=== PATIENT | female | born 1955 | race Caucasian/White ===

== ENCOUNTER 2020-10-01 09:54 | Day surgery (SDC) | payer MEDICARE, SELFPAY ==
[2020-09-27 10:18] VITALS: BMI 64.4
--- NOTE | 2020-09-30 10:27 | HO.ANESPROP2 ---
Documented by User: Hanna Burns 09/30/20 11:08 HPI - Anesthesia Eval Consult details Narrative: 65yo F for Colonoscopy PMFSH Past Medical History Medical History Arthritis Elevated cholesterol Hx of osteopenia Hx of pneumothorax Surgical History Surgical History Hx of chest tube placement Hx of laparoscopy Social History Social History Smoking Status: Unknown if ever smoked Use of substances other than those prescribed or required for medical reasons: No Advance Directives Information Provided: No Meds Allergies Allergy/AdvReac Type Severity Reaction Status Date / Time Penicillins Allergy Unknown UNKNOWN Unverified 08/08/20 17:27 sulfamethoxazole Allergy Unknown Unknown Verified 09/27/20 10:22 [From Bactrim] trimethoprim [From Bactrim] Allergy Unknown Unknown Verified 09/27/20 10:22 allergy medications Allergy Unknown UNKNOWN Uncoded 08/08/20 17:27 From Dilantin Allergy Unknown UNKNOWN Uncoded 08/08/20 17:27 From Lipitor Allergy Unknown UNKNOWN Uncoded 08/08/20 17:27 Shellfish Allergy Unknown UNKNOWN Uncoded 08/08/20 17:27 Home Medications Medication Instructions Recorded Confirmed Type biotin 09/27/20 History glucosamines, HCl, sulf,acetyl 1 tab PO DAILY 09/27/20 09/27/20 History [Glucosamine Complex] ibuprofen 09/27/20 09/27/20 History lovastatin 1 tab PO DAILY 09/27/20 09/27/20 History multivitamin 1 tab PO DAILY 09/27/20 09/27/20 History vitamin A-vitamin C-vit E-min tab 09/27/20 History [Ocuvite] Exam Exam Date and Time: September 30, 2020 1027 Height,Weight and Vital Signs: Height 5 ft 6 in Weight 181 kg Pertinent Lab Results Pertinent Lab Results: Laboratory Tests 05/15/20 05/15/20 11:29 11:29 WBC 5.5 Hgb 13.6 Hct 40.0 Plt Count 280 Sodium 140 Potassium 3.9 Chloride 105 BUN 14 Creatinine 0.79 Assessment and Plan Assessment Anesthesia Assessment: Chart Reviewed Documented by User: Taisha Callahan 10/01/20 11:26 PMFSH Past Medical History Medical History Arthritis Elevated cholesterol Hx of osteopenia Hx of pneumothorax Surgical History Surgical History Hx of chest tube placement Hx of laparoscopy Social History Social History Smoking Status: Unknown if ever smoked Use of substances other than those prescribed or required for medical reasons: No Advance Directives Information Provided: No Meds Allergies Allergy/AdvReac Type Severity Reaction Status Date / Time Penicillins Allergy Unknown UNKNOWN Unverified 08/08/20 17:27 sulfamethoxazole Allergy Unknown Unknown Verified 09/27/20 10:22 [From Bactrim] trimethoprim [From Bactrim] Allergy Unknown Unknown Verified 09/27/20 10:22 allergy medications Allergy Unknown UNKNOWN Uncoded 08/08/20 17:27 From Dilantin Allergy Unknown UNKNOWN Uncoded 08/08/20 17:27 From Lipitor Allergy Unknown UNKNOWN Uncoded 08/08/20 17:27 Shellfish Allergy Unknown UNKNOWN Uncoded 08/08/20 17:27 Home Medications Medication Instructions Recorded Confirmed Type biotin 09/27/20 History glucosamines, HCl, sulf,acetyl 1 tab PO DAILY 09/27/20 09/27/20 History [Glucosamine Complex] ibuprofen 09/27/20 09/27/20 History lovastatin 1 tab PO DAILY 09/27/20 09/27/20 History multivitamin 1 tab PO DAILY 09/27/20 09/27/20 History vitamin A-vitamin C-vit E-min tab 09/27/20 History [Ocuvite] Exam Airway Mallampati Class: I TM Dist: >3cm Neck ROM: Full Loose/Missing/Broken Teeth: No Heart: Arrr Lungs: CTA Assessment and Plan Assessment Anesthesia Assessment: Anesthesia Plan Discussed and Chart Reviewed Final Anesthetic Review NPO: Yes ASA Class: II Final Preanesthetic Review: Meds/Allgs Chart Reviewed, Consent Obtained/Reviewed and Anes Risks/Benef Reviewed Patient Risk: Low Procedure Risk: Low Anesthetic Plan Anesthetic Plan: MAC: Disposition: Standard PACU
[2020-10-01 10:23] VITALS: BMI 28.0
[2020-10-01 10:32] VITALS: BP 127/64; PULSE 74; RESP 18; TEMP 36.6; O2SAT 97
--- NOTE | 2020-10-01 10:41 | MHC.SHP ---
Pre-Procedural Eval Section A The patient is an INPATIENT: No Changes since office visit: No Cold of Flu in the past 2 weeks, No New Medical Problems, No Changes in Medication and No Patient answered all questions The History & Physical has been completed within 30 days and I have reviewed it.: Yes Section B Chief Complaint: Screening Allergies: Allergies Allergy/AdvReac Type Severity Reaction Status Date / Time Penicillins Allergy Unknown UNKNOWN Unverified 08/08/20 17:27 sulfamethoxazole Allergy Unknown Unknown Verified 09/27/20 10:22 [From Bactrim] trimethoprim [From Bactrim] Allergy Unknown Unknown Verified 09/27/20 10:22 allergy medications Allergy Unknown UNKNOWN Uncoded 08/08/20 17:27 From Dilantin Allergy Unknown UNKNOWN Uncoded 08/08/20 17:27 From Lipitor Allergy Unknown UNKNOWN Uncoded 08/08/20 17:27 Shellfish Allergy Unknown UNKNOWN Uncoded 08/08/20 17:27 Plan Patient has been examined and remains a candidate for the planned procedure
[2020-10-01] MEDS: Lactated Ringers 1,000 ML 100 ML IVCONT (10:49)
--- NOTE | 2020-10-01 12:00 | PM.OP ---
Brief Operative Note Date of procedure: 10/01/20 Pre-op diagnosis: screening Post-op diagnosis: same (colon polyp) Procedure: colonoscopy Surgeon: Ayaan Lechuga Anesthesia: MAC Estimated blood loss (mL): 5 Pathology: other (polyp 75 cm) Condition: stable Disposition: PACU
[2020-10-01 12:01] VITALS: BP 91/44; PULSE 70; RESP 12; TEMP 36.5; O2SAT 97
[2020-10-01 12:17] VITALS: BP 118/99; PULSE 79; RESP 13; TEMP 36.5; O2SAT 97
--- NOTE | 2020-10-01 12:18 | OP_ITS ---
SURGEON: Ayaan Lechuga MD INDICATIONS: Colon cancer screening. PREOPERATIVE DIAGNOSIS: POSTOPERATIVE DIAGNOSIS: PROCEDURE PERFORMED: ESTIMATED BLOOD LOSS: COMPLICATIONS: ANESTHESIA: Monitored anesthesia care. ASSISTANTS: SPECIMENS: PROCEDURE: Colonoscopy to the terminal ileum with biopsy. DESCRIPTION OF PROCEDURE: History and physical performed. The risks and benefits of the procedure were explained to the patient. Informed consent was obtained. The patient was placed in the left lateral decubitus position. A digital rectal exam was performed and was found to be normal. The Olympus pediatric video colonoscope was introduced into the rectum and advanced to the cecum without difficulty. The cecum was identified by transillumination, palpation, and identification of ileocecal valve. Examination was performed and the scope was removed. She tolerated the procedure well and was taken to recovery room in stable condition. FINDINGS: The terminal ileum was examined and appeared normal. The visualized colonic mucosa was normal. Quality of prep was good at 75 cm. There was a less than 5 mm sessile polyp which was removed using a biopsy forceps. No other polyps were identified. Retroflexed examination was normal. IMPRESSION: Colon polyp. RECOMMENDATIONS: Follow up biopsy results. MD ANDREA Davis/ISAIAS / [id number]
== END 2020-10-01 13:04 | disposition home or self-care (01) ==
PROVIDERS: PCP Pediatrics; Visit Provider Internal Medicine Gastroenterology
PROC: 0DJD8ZZ Inspection of Lower Intestinal Tract, Via Natural or Artificial Opening Endoscopic (ICD-10-PCS; CPT 45378; principal; 2020-10-01 11:00)
DX: Z12.11 Encounter for screening for malignant neoplasm of colon (principal); K63.5 Polyp of colon; E78.5 Hyperlipidemia, unspecified; M85.80 Other specified disorders of bone density and structure, unspecified site; Z79.899 Other long term (current) drug therapy; Z79.1 Long term (current) use of non-steroidal anti-inflammatories (NSAID)
CPT/HCPCS: 45380; 88305

== ENCOUNTER 2020-11-01 13:33 | Outpatient (REF) | payer MEDICARE, SELFPAY ==
--- NOTE | 2020-11-01 13:40 | MM_ITS ---
EXAMINATION: BONE DENSITOMETRY CLINICAL INDICATION: Screening for osteoporosis. COMPARISON: Baseline BD dated 06/15/2017. TECHNIQUE: Using a [employer] DXA System (software version: 13.1) manufactured by [employer] dual-energy x-ray absorptiometry was performed of the lumbar spine and left hip. The images are of good technical quality. Summary results are attached. FINDINGS: AP SPINE L1-L4: Current: BMD 1.021 g/cm2, Z-score -0.2, T-score -1.3, osteopenia, 0.9% decrease from baseline (<5% change is not significant). Baseline: BMD 1.030 g/cm2. LEFT FEMUR, NECK: Current: BMD 0.997 g/cm2, Z-score 0.9, T-score -0.3, normal. Baseline: BMD 1.095 g/cm2. LEFT FEMUR, TOTAL: Current: BMD 1.045 g/cm2, Z-score 1.2, T-score 0.3, normal, 1.4% increase from baseline (<5% change is not significant). Baseline: BMD 1.031 g/cm2. IDENTIFIED RISK FACTORS: Menopause, family history (parental hip fracture). HISTORY OF FRACTURE: None listed. MEDICATIONS: Calcium supplements or multivitamin, vitamin D. MM/XR DEXA axial skeleton IMPRESSION: 1. DIAGNOSIS: Osteopenia based on the lowest T-score value of -1.3 in the lumbar spine applying World Health Organization criteria. 2. 10-YEAR FRACTURE RISK PREDICTION, FRAX: Major osteoporotic fracture (clinical spine, forearm, hip or shoulder) 13.6%. Hip fracture 0.3%. 3. Treatment Recommendations: NOF guidelines recommend consideration for treatment in postmenopausal women and men age 50 and older presenting with the following: -A hip or vertebral (clinical or morphometric) fracture. -T-score less than or equal to -2.5 at the femoral neck or spine after appropriate evaluation to exclude secondary causes. -Low bone mass at the hip or spine and a 10-year fracture probability by FRAX of greater than or equal to 3% for hip fracture or greater than or equal to 20% for major osteoporotic fracture based on the [place] adapted WHO algorithm. 4. Other Recommendations: All treatment decisions require clinical judgment and consideration of individual patient factors, including patient preferences, comorbidities, previous drug use, risk factors not captured in the FRAX model (e.g. frailty, falls, vitamin D deficiency, increased bone turnover, interval significant decline in bone density) and possible under or overestimation of fracture risk by FRAX. Additional medical evaluation for secondary cause of low bone mineral density may be appropriate. FUTURE SCAN RECOMMENDATION: People with diagnosed cases of osteoporosis or at high risk for fracture should have regular bone mineral density tests. For patients eligible for Medicare, routine testing is allowed once every 2 years. The testing frequency can be increased to one year for patients who have rapidly progressing disease, those who are receiving or discontinuing medical therapy to restore bone mass, or have additional risk factors.
--- NOTE | 2020-11-01 13:41 | MM_ITS ---
EXAMINATION: MM SCREENING DIGITAL BREAST TOMOSYNTHESIS, BILATERAL CLINICAL INFORMATION: Screening. Asymptomatic. The lifetime risk of breast cancer based on the Tyrer-Cuzick Model is 7%. COMPARISON: Mammography: 06/15/2017, 01/28/2016 TECHNIQUE: Digital breast tomosynthesis is performed in both the craniocaudal and mediolateral oblique views along with computer-aided detection (CAD). Synthesized 2D images are generated from the tomosynthesis. FINDINGS: There are scattered areas of fibroglandular density (ACR BI-RADS breast composition Category b). There are no significant masses, abnormal calcifications, or other abnormalities. The axilla and skin contours are unremarkable. No significant changes. MM/MM tomosynthesis screening BI IMPRESSION: No mammographic evidence of malignancy. ASSESSMENT: BI-RADS 1: Negative RECOMMENDATION: Routine annual mammography screening. This patient's information was entered into a reminder system with a target due date for their next mammogram.
== END 2020-11-01 13:34 | disposition home or self-care (01) ==
LOC: HO.MAMMO 13:33
PROVIDERS: Visit Provider Obstetrics & Gynecology
DX: Z12.31 Encounter for screening mammogram for malignant neoplasm of breast (principal); Z13.820 Encounter for screening for osteoporosis; Z78.0 Asymptomatic menopausal state; M85.89 Other specified disorders of bone density and structure, multiple sites; Z79.899 Other long term (current) drug therapy
CPT/HCPCS: 77063; 77067; 77080

== ENCOUNTER 2021-05-06 08:31 | Emergency (ER) | payer MEDICARE, SELFPAY ==
--- NOTE | ~2021-05-06 | XR_ITS ---
EXAMINATION: RIGHT ELBOW AND RIGHT SHOULDER X-RAY CLINICAL INFORMATION: Pain post fall COMPARISON: Right humerus x-ray from earlier the same day TECHNIQUE: 4 views of the right shoulder and 3 views of the right elbow FINDINGS: Right shoulder: There is a nondisplaced possibly comminuted fracture of the greater tuberosity. No other fracture is seen. The glenohumeral joint is normal. There is mild arthritis at the acromioclavicular joint. Soft tissues are unremarkable. Right elbow: Bone alignment is normal. No fracture or dislocation is seen. The joint spaces are normal. There is a small osteophyte at the coronoid process. There is no joint effusion. XR/XR shoulder RT min 2V IMPRESSION: Right shoulder: Nondisplaced right greater tuberosity fracture. Right elbow: No fracture seen.
--- NOTE | ~2021-05-06 | XR_ITS ---
EXAMINATION: RIGHT ELBOW AND RIGHT SHOULDER X-RAY CLINICAL INFORMATION: Pain post fall COMPARISON: Right humerus x-ray from earlier the same day TECHNIQUE: 4 views of the right shoulder and 3 views of the right elbow FINDINGS: Right shoulder: There is a nondisplaced possibly comminuted fracture of the greater tuberosity. No other fracture is seen. The glenohumeral joint is normal. There is mild arthritis at the acromioclavicular joint. Soft tissues are unremarkable. Right elbow: Bone alignment is normal. No fracture or dislocation is seen. The joint spaces are normal. There is a small osteophyte at the coronoid process. There is no joint effusion. XR/XR elbow RT min 3V IMPRESSION: Right shoulder: Nondisplaced right greater tuberosity fracture. Right elbow: No fracture seen.
--- NOTE | ~2021-05-06 | XR_ITS ---
EXAMINATION: XR HUMERUS, RIGHT CLINICAL INFORMATION: Fall. COMPARISON: None TECHNIQUE: AP and lateral views of the right humerus. FINDINGS: The bones and soft tissues are normal. No fracture. Imaged portions of the shoulder and elbow are unremarkable. XR/XR humerus RT IMPRESSION: Unremarkable right humerus exam.
[2021-05-06 08:37] VITALS: BP 150/70; PULSE 77; RESP 16; TEMP 36.6; O2SAT 97; BMI 27.7
--- NOTE | 2021-05-06 09:28 | ED_ITS ---
HPI - Extremity Problem General Chief complaint: Extremity Injury, Upper <LENCHO Edwards Last Filed: 05/06/21 10:58> Stated complaint: fall <LENCHO Edwards Last Filed: 05/06/21 10:58> Time Seen by Provider: 05/06/21 09:09 <LENCHO Edwards Last Filed: 05/06/21 10:58> Source: patient <LENCHO Edwards Last Filed: 05/06/21 10:58> Mode of arrival: ambulatory <LENCHO Edwards Last Filed: 05/06/21 10:58> History of Present Illness HPI Narrative: 66-year-old female past medical history of hyperlipidemia presenting to the emergency department with right upper extremity pain after falling 1 hour ago. Patient states she tripped and fell onto her right side on the grass. She denies hitting her head, or LOC. She denies anticoagulant use. She denies previous symptoms prior to the fall such as dizziness, lightheadedness, chest pain, shortness of breath. She is complaining of right upper arm pain. She states she is able to move her arm when she lifts her shoulder that is when she has pain. She denies injury to her back, chest, lower legs. <LENCHO Edwards Last Filed: 05/06/21 10:58> Related Data Home medications: Home Medications Medication Instructions Recorded Confirmed biotin 09/27/20 glucosamines, HCl, sulf,acetyl 1 tab PO DAILY 09/27/20 09/27/20 ibuprofen 09/27/20 09/27/20 lovastatin 1 tab PO DAILY 09/27/20 09/27/20 multivitamin 1 tab PO DAILY 09/27/20 09/27/20 vitamin A-vitamin C-vit E-min tab 09/27/20 <LENCHO Edwards Last Filed: 05/06/21 10:58> Allergies/Adverse reactions: Allergies Allergy/AdvReac Type Severity Reaction Status Date / Time Penicillins Allergy Unknown UNKNOWN Verified 06/06/21 13:18 sulfamethoxazole Allergy Unknown Unknown Verified 06/06/21 13:18 [From Bactrim] trimethoprim [From Bactrim] Allergy Unknown Unknown Verified 06/06/21 13:18 codeine AdvReac Nausea and Verified 06/06/21 13:18 Vomiting allergy medications Allergy Unknown UNKNOWN Uncoded 08/08/20 17:27 From Dilantin Allergy Unknown UNKNOWN Uncoded 08/08/20 17:27 From Lipitor Allergy Unknown UNKNOWN Uncoded 08/08/20 17:27 Shellfish Allergy Unknown UNKNOWN Uncoded 08/08/20 17:27 <LENCHO Edwards - Last Filed: 05/06/21 10:58> Review of Systems Constitutional: Constitutional: Denies fever(s) and Denies headache(s) <LENCHO Edwards - Last Filed: 05/06/21 10:58> Eyes: Eyes: Reports no additional eye complaints <LENCHO Edwards - Last Filed: 05/06/21 10:58> ENT: Denies headache(s) <LENCHO Edwards - Last Filed: 05/06/21 10:58> Cardiovascular: Cardiovascular: Denies chest pain, Denies syncope and Denies dyspnea <LENCHO Edwards - Last Filed: 05/06/21 10:58> Respiratory: Respiratory: Denies dyspnea <LENCHO Edwards - Last Filed: 05/06/21 10:58> Gastrointestinal: Gastrointestinal: Denies abdominal pain, Denies diarrhea and Denies vomiting <LENCHO Edwards - Last Filed: 05/06/21 10:58> Genitourinary: Comments: no incontinence <LENCHO Edwards - Last Filed: 05/06/21 10:58> Musculoskeletal: Comments: right arm pain <LENCHO Edwards - Last Filed: 05/06/21 10:58> Neurologic: Denies syncope and Denies headache(s) <LENCHO Edwards - Last Filed: 05/06/21 10:58> Hematologic/Lymphatic: Hematologic/Lymphatic: Reports no additional hematologic/lymphatic complaints, Denies easy bleeding and Denies easy bruising <LENCHO Edwards - Last Filed: 05/06/21 10:58> PMFSH Past Medical History Medical History: Medical History Arthritis Elevated cholesterol Hx of osteopenia Hx of pneumothorax <LENCHO Edwards - Last Filed: 05/06/21 10:58> Surgical History: Surgical History Hx of chest tube placement Hx of laparoscopy <LENCHO Edwards - Last Filed: 05/06/21 10:58> Social History Social History: Social History Household Members Other:: lives with friend Patient Tobacco Use Status: Never used Tobacco Current occupational status: employed 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 <LENCHO Edwards - Last Filed: 05/06/21 10:58> Physical Exam Vital Signs: Vital Signs: Last Vital Signs Temp 98 F 05/06/21 08:37 Pulse 77 05/06/21 08:37 Resp 16 05/06/21 08:37 BP 150/70 H 05/06/21 08:37 Pulse Ox 97 05/06/21 08:37 Body Mass Index 27.7 <LENCHO Edwards - Last Filed: 05/06/21 10:58> Vital Signs: Last Vital Signs Temp 98 F 05/06/21 08:37 Pulse 77 05/06/21 08:37 Resp 16 05/06/21 08:37 BP 150/70 H 05/06/21 08:37 Pulse Ox 97 05/06/21 08:37 Body Mass Index 27.7 <Cristopher Willett MD - Last Filed: 06/11/21 16:41> Const: Other: sitting upright in chair, bracing right arm <LENCHO Edwards - Last Filed: 05/06/21 10:58> Orientation/consciousness: patient oriented x3 <LENCHO Edwards - Last Filed: 05/06/21 10:58> HENMT: Head: Yes normocephalic and Yes atraumatic <LENCHO Edwards - Last Filed: 05/06/21 10:58> Eyes: Pupils: Equal, round and reactive pupils present <LENCHO Edwards - Last Filed: 05/06/21 10:58> EOM: EOMs intact bilaterally <Iza Schwartz RI - Last Filed: 05/06/21 10:58> Neck: Other: no tenderness <Iza Schwartz RI - Last Filed: 05/06/21 10:58> Neck: Yes full ROM, Yes trachea midline and Yes supple <Iza Schwartz RI - Last Filed: 05/06/21 10:58> Chest: Other: atraumatic <Iza Schwartz RI - Last Filed: 05/06/21 10:58> Chest palpation & inspection: normal inspection of the chest <Iza Schwartz RI - Last Filed: 05/06/21 10:58> Resp: Effort & Inspection: normal respiratory effort and able to speak in complete sentences <Iza Schwartz RI - Last Filed: 05/06/21 10:58> Auscultation: clear to auscultation bilaterally <Iza Schwartz RI - Last Filed: 05/06/21 10:58> Cardio: Rate: regular rate <Iza Schwartz RI - Last Filed: 05/06/21 10:58> Rhythm: regular rhythm <Iza Schwartz RI - Last Filed: 05/06/21 10:58> GI: Inspection: Yes normal to inspection and No distended <Iza Schwartz RI - Last Filed: 05/06/21 10:58> Palpation (GI): nontender <Iza Schwartz RI - Last Filed: 05/06/21 10:58> Back/Spine/Pelvis: Other: no midline tenderness <Iza Schwartz RI - Last Filed: 05/06/21 10:58> Skin: Other: warm <Iza Schwartz RI - Last Filed: 05/06/21 10:58> Neuro: Other: no focal deficets <Iza Schwartz RI - Last Filed: 05/06/21 10:58> General: patient oriented x3 and gait normal <LENCHO Edwards - Last Filed: 05/06/21 10:58> Cranial nerves: Yes Equal, round and reactive pupils present <LENCHO Edwards - Last Filed: 05/06/21 10:58> Extrem: Other: RUE- + palpable radial pulse, full range of motion of digits, wrist, elbow, no significant tenderness to palpation, tenderness with range of motion of her right shoulder, no obvious swelling or deformity, no ecchymosis, no open wounds, no rashes, compartment soft, neurovascularly intact <LENCHO Edwards - Last Filed: 05/06/21 10:58> Psych: Appearance: grossly normal <LENCHO Edwards - Last Filed: 05/06/21 10:58> Course Course Course Narrative: X-ray shows a greater tuberosity fracture of her right shoulder. Will place her into a sling. We will give her orthopedic follow-up. I offered evaluation for rehab placement given limited range of motion of her dominant hand which she declined. She does have her friend who she states will help her. I did discuss that she could return if she felt unsteady or unsafe with her ADLs. Will discharge home, no weight bearing of right arm discussed. NSAIDs for pain discussed. <LENCHO Edwards - Last Filed: 05/06/21 10:58> I have reviewed the chart <Cristopher Willett MD - Last Filed: 06/11/21 16:41> MDM - Extremity (Nontraumatic) MDM Narrative Medical decision making narrative: 66-year-old female presenting to the emergency department after a fall Vital stable, nontoxic appearing, hemodynamically stable Patient fall was mechanical in nature. She denies presyncopal symptoms. No associated syncope. She did not hit her head, no LOC, no anticoagulant use, will defer head CT at this time. No midline tenderness to her cervical, thoracic or lumbar spine suggest an underlying fracture. No evidence of thoracoabdominal injury. Her pelvis is stable. No lower extremity injury. She did have a plain film of her right humerus which was negative but will obtain x- rays of the joint above and below. No infectious signs. No swelling to suggest a DVT. I will give her Tylenol for pain. <LENCHO Edwards - Last Filed: 05/06/21 10:58> Discharge Plan Discharge Clinical Impression: Fracture of shoulder <LENCHO Edwards Last Filed: 05/06/21 10:58> Patient Disposition: Home, Self-Care <LENCHO Edwards - Last Filed: 05/06/21 10:58> Additional Instructions: Your seen today in the emergency department after a fall. Your x-ray shows you have a greater tuberosity fracture to her right shoulder. We placed in a sling, continue wearing the sling until you are seen by the orthopedist. Please call the orthopedic office today and let them know you have a broken shoulder so they can see you in the office. Please return if your pain worsens, worsening swelling to her arm, numbness, tingling, weakness, or any other concerning symptoms. No weight-bearing of that right arm. You may take tylenol or ibuprofen for pain if needed as directed. <LENCHO Edwards - Last Filed: 05/06/21 10:58> Prescriptions: No Action multivitamin Tablet 1 tab PO DAILY RF: 0 lovastatin 40 mg tablet 1 tab PO DAILY RF: 0 vitamin A-vitamin C-vit E-min Tablet RF: 0 glucosamines, HCl, sulf,acetyl 1 gram Tablet 1 tab PO DAILY RF: 0 biotin RF: 0 ibuprofen RF: 0 <LENCHO Edwards - Last Filed: 05/06/21 10:58> Referrals: Cristian Jackson MD [Physician] - 1 day (call today for follow up appointment regarding your broken right shoulder- greater tuberosity fracture ) <LENCHO Edwards - Last Filed: 05/06/21 10:58> Interventions: ED Discharge Assessment Last Done: 05/06/21 10:44 <LENCHO Edwards - Last Filed: 05/06/21 10:58> Discharge Date/Time: 05/06/21 10:45 <LENCHO Edwards - Last Filed: 05/06/21 10:58>
[2021-05-06] MEDS: Acetaminophen 325 MG TABLET 650 MG PO (09:44)
== END 2021-05-06 10:45 | disposition home or self-care (01) ==
PROVIDERS: Emergency Provider Emergency Medicine
DX: S42.91XA Fracture of right shoulder girdle, part unspecified, initial encounter for closed fracture (principal); W01.0XXA Fall on same level from slipping, tripping and stumbling without subsequent striking against object, initial encounter; Y93.9 Activity, unspecified; Y92.9 Unspecified place or not applicable; Y99.9 Unspecified external cause status
CPT/HCPCS: 73030; 73060; 73080; 99283; 99284

== ENCOUNTER → 2021-05-09 13:52 | Outpatient (BNVA) | payer MEDICARE, SELFPAY | PROVIDERS: PCP Internal Medicine Sports Medicine; Visit Provider Physician Assistant | DX: S42.251A Displaced fracture of greater tuberosity of right humerus, initial encounter for closed fracture (principal) | CPT/HCPCS: 99202 ==

== ENCOUNTER 2021-06-06 07:29 | Outpatient (REF) | payer MEDICARE, SELFPAY ==
--- NOTE | ~2021-06-06 | XR_ITS ---
EXAMINATION: XR SHOULDER, RIGHT CLINICAL INFORMATION: Greater tuberosity fracture COMPARISON: Previous x-ray 05/06/2021 TECHNIQUE: Two views of the right shoulder. FINDINGS: There is a nondisplaced comminuted fracture of the greater tuberosity. This appears unchanged. Fracture lines are still seen. No bony callus formation is seen. The joint spaces are normal. Soft tissues are normal. XR/XR shoulder RT min 2V IMPRESSION: No change in nondisplaced comminuted fracture of the right greater tuberosity.
== END 2021-06-06 07:30 | disposition home or self-care (01) ==
LOC: HO.HOSX 07:29
PROVIDERS: Visit Provider Physician Assistant
DX: S42.251A Displaced fracture of greater tuberosity of right humerus, initial encounter for closed fracture (principal)
CPT/HCPCS: 73030; 99212

== ENCOUNTER 2021-07-18 12:48 | Outpatient (REF) | payer MEDICARE, SELFPAY | END 2021-07-18 12:49 | disposition home or self-care (01) | LOC: HO.HOSX 12:48 | PROVIDERS: PCP Internal Medicine Sports Medicine; Visit Provider Physician Assistant | DX: S42.251A Displaced fracture of greater tuberosity of right humerus, initial encounter for closed fracture (principal) | CPT/HCPCS: 99212 ==

== ENCOUNTER 2021-07-18 13:29 | Outpatient (REF) | payer MEDICARE, SELFPAY ==
--- NOTE | ~2021-07-18 | XR_ITS ---
EXAMINATION: XR SHOULDER, RIGHT CLINICAL INFORMATION: Shoulder pain. COMPARISON: 06/06/2021 TECHNIQUE: AP external rotation, Grashey, scapular Y, and axillary views of the right shoulder. FINDINGS: Previously demonstrated nondisplaced comminuted fracture of the greater tuberosity is less well-defined as compared to previous, suggestive of interval partial healing. Joint spaces are maintained. Mild acromial clavicular arthritis. XR/XR shoulder RT min 2V IMPRESSION: Progression of healing of the nondisplaced comminuted fracture of the right greater tuberosity.
== END 2021-07-18 13:30 | disposition home or self-care (01) ==
LOC: HO.XRAY 13:29
PROVIDERS: Visit Provider Physician Assistant
DX: M25.511 Pain in right shoulder (principal)
CPT/HCPCS: 73030

== ENCOUNTER 2021-09-02 07:09 | Outpatient (REF) | payer MEDICARE, SELFPAY ==
--- NOTE | ~2021-09-02 | XR_ITS ---
EXAMINATION: XR SHOULDER, RIGHT CLINICAL INFORMATION: Right shoulder pain. COMPARISON: Most recent right shoulder radiographs dated 07/18/2021. TECHNIQUE: AP and scapular Y views of the right shoulder. FINDINGS: Previously seen greater tuberosity fracture has completely healed with normal anatomic alignment. No acute fracture or dislocation. No osseous erosion. Minimal degenerative arthritis at the acromioclavicular and glenohumeral joints, unchanged. XR/XR shoulder RT min 2V IMPRESSION: Healed greater tuberosity fracture.
== END 2021-09-02 07:10 | disposition home or self-care (01) ==
LOC: HO.HOSX 07:09
PROVIDERS: Visit Provider Physician Assistant
DX: S42.251D Displaced fracture of greater tuberosity of right humerus, subsequent encounter for fracture with routine healing (principal)
CPT/HCPCS: 73030; 99212

== ENCOUNTER → 2021-10-28 09:27 | Outpatient (BNVA) | payer MEDICARE, SELFPAY | PROVIDERS: PCP Pediatrics; Visit Provider Physician Assistant | DX: S42.251D Displaced fracture of greater tuberosity of right humerus, subsequent encounter for fracture with routine healing (principal) | CPT/HCPCS: 99212 ==

== ENCOUNTER 2021-11-06 10:00 | Outpatient (RCR) | payer MEDICARE, SELFPAY ==
--- NOTE | 2021-06-10 18:29 | MHC.PT.EP ---
[facility] [place] Office [place] Office [place] Office [address] [phone] F: [phone] F: [phone] F: [phone] F: [phone] Physical Therapy Plan of Care Date of Evaluation: Date of Surgery: Diagnosis: Fracture of gr tuberosity R humerus. Assessment: Pt is a 66 y/o left hand dominant female referred to pt s/p R greater tuberosity fracture of shoulder resulting in decreased tolerance and ability to perform reaching a high shelf, dressing pullovers, reaching her neck and back for hygiene/ dressing and carrying objects of weight as well as disturbed sleep secondary to decreased UE strength and ROM, decreased posture, fracture healing process, and pain. Pt is deemed an appropriate candidate to receive skilled PT in order to address her physical limitations to improve her functional ability. Frequency and Duration: The patient will be seen 2 x / wk x 8 wks. Short Term Goals: initiate HEP. R shoulder flexion AROM > 164 degrees. Clinical Assistant Goals: Pt will be able to place objects on high shelf with managed Sx. Pt will be able to dress pullers with managed Sx. Pt will be able to reach her neck and back for hygiene and dressing. Treatment Plan: Modalities to reduce pain, spasms and effusion. Manual therapy to restore motion and function. Therapeutic exercise to improve strength and flexibility. Neuromuscular re-education for posture and balance. Therapeutic activities to return to functional activities of daily living. Electronically signed by: Ben Lassiter PT. Please sign and return to therapist. Thank you for your referral.
--- NOTE | 2021-11-06 18:45 | MHC.PT.DC ---
[facility] [place] Office [place] Office [place] Office [address] [phone] F: [phone] F: [phone] F: [phone] F: [phone] Physical Therapy Discharge Report Diagnosis: Fracture of gr tuberosity R humerus. Date of Surgery: Date of Evaluation: 06/10/21 Date of Discharge: 11/06/21 Treatments to Date: 40 Cancellations to Date: No Shows to Date: Discharge Status: Improved Function Independent with HEP Discharge Summary: Felicita has been an active participant in her therapy in and out of the clinic though she has not met all of her therapeutic goals she is not much more comfortable and is functional of the ROM she has achieved. 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 AROM: flexion 136 degrees, abduction to 95 degrees. Functional AROM: IR to T11 (L to T8), ER to T2 (L to T3) MMT: ER 4/5 and pain free, IR 4+/5, flexion 4+/5 in available range, abd 4/5 in available range and painless, extension 5/5. Electronically signed by: Ben Lassiter PT. Please sign and return to therapist. Thank you for your referral.
== END 2021-11-06 18:45 | disposition home or self-care (01) ==
LOC: HO.PTCHIC 10:00
PROVIDERS: PCP Internal Medicine Sports Medicine; Visit Provider Physician Assistant
DX: S42.251D Displaced fracture of greater tuberosity of right humerus, subsequent encounter for fracture with routine healing (principal)
CPT/HCPCS: 97014; 97110; 97140; 97161; 97530

== ENCOUNTER 2022-10-07 13:48 | Outpatient (REF) | payer MEDICARE, SELFPAY ==
--- NOTE | ~2022-10-07 | MM_ITS ---
EXAMINATION: MM SCREENING DIGITAL BREAST TOMOSYNTHESIS, BILATERAL CLINICAL INFORMATION: Screening. Asymptomatic. The lifetime risk of breast cancer based on the Tyrer-Cuzick Model is 6%. COMPARISON: Mammography: 11/01/2020, 06/15/2017, 01/28/2016 TECHNIQUE: Digital breast tomosynthesis is performed in both the craniocaudal and mediolateral oblique views along with computer-aided detection (CAD). Synthesized 2D images are generated from the tomosynthesis. FINDINGS: There are scattered areas of fibroglandular density (ACR BI-RADS breast composition Category b). There are no significant masses, abnormal calcifications, or other abnormalities. Parenchymal pattern is similar to prior studies. No developing density. The axilla and skin contours are unremarkable. MM/MM tomosynthesis screening BI IMPRESSION: No mammographic evidence of malignancy. ASSESSMENT: BI-RADS 1: Negative RECOMMENDATION: Routine annual mammography screening. This patient's information was entered into a reminder system with a target due date for their next mammogram.
== END 2022-10-07 13:49 | disposition home or self-care (01) ==
LOC: HO.MAMMO 13:48
PROVIDERS: PCP Internal Medicine; Visit Provider Obstetrics & Gynecology
DX: Z12.31 Encounter for screening mammogram for malignant neoplasm of breast (principal)
CPT/HCPCS: 77063; 77067

== ENCOUNTER 2022-12-11 08:01 | Outpatient (REF) | payer MEDICARE, SELFPAY ==
--- NOTE | ~2022-12-11 | MM_ITS ---
EXAMINATION: BONE DENSITOMETRY CLINICAL INDICATION: Menopause. COMPARISON: Previous BD dated 11/01/2020 and baseline BD dated 06/15/2017. TECHNIQUE: Using a [employer] DXA System (software version: 13.1) manufactured by [employer], dual-energy x-ray absorptiometry was performed of the lumbar spine and left hip. The images are of good technical quality. Summary results are attached. FINDINGS: AP SPINE L1-L4: Current: BMD 1.002 g/cm2, Z-score -0.5, T-score -1.5, osteopenia, 1.9% decrease from previous, 2.7% decrease from baseline (<5% change is not significant). Prior: BMD 1.021 g/cm2. Baseline: BMD 1.030 g/cm2. LEFT FEMUR, NECK: Current: BMD 0.987 g/cm2, Z-score 0.8, T-score -0.4, normal. Prior: BMD 0.997 g/cm2. Baseline: BMD 1.095 g/cm2. LEFT FEMUR, TOTAL: Current: BMD 0.999 g/cm2, Z-score 0.8, T-score -0.1, normal, 4.4% decrease from previous, 3.1% decrease from baseline (<5% change is not significant). Prior: BMD 1.045 g/cm2. Baseline: BMD 1.031 g/cm2. IDENTIFIED RISK FACTORS: Menopause, family history (parent hip fracture), history of fracture (adult). HISTORY OF FRACTURE: Shoulder. MEDICATIONS: Calcium, multivitamin. MM/XR DEXA axial skeleton IMPRESSION: 1. DIAGNOSIS: Osteopenia based on the lowest T-score value of -1.5 in the lumbar spine applying World Health Organization criteria. 2. 10-YEAR FRACTURE RISK PREDICTION, FRAX: Major osteoporotic fracture (clinical spine, forearm, hip or shoulder) 20.3%. Hip fracture 0.9%. 3. Treatment Recommendations: NOF guidelines recommend consideration for treatment in postmenopausal women and men age 50 and older presenting with the following: -A hip or vertebral (clinical or morphometric) fracture. -T-score less than or equal to -2.5 at the femoral neck or spine after appropriate evaluation to exclude secondary causes. -Low bone mass at the hip or spine and a 10-year fracture probability by FRAX of greater than or equal to 3% for hip fracture or greater than or equal to 20% for major osteoporotic fracture based on the [place] adapted WHO algorithm. 4. Other Recommendations: All treatment decisions require clinical judgment and consideration of individual patient factors, including patient preferences, comorbidities, previous drug use, risk factors not captured in the FRAX model (e.g. frailty, falls, vitamin D deficiency, increased bone turnover, interval significant decline in bone density) and possible under or overestimation of fracture risk by FRAX. Additional medical evaluation for secondary cause of low bone mineral density may be appropriate. FUTURE SCAN RECOMMENDATION: People with diagnosed cases of osteoporosis or at high risk for fracture should have regular bone mineral density tests. For patients eligible for Medicare, routine testing is allowed once every 2 years. The testing frequency can be increased to one year for patients who have rapidly progressing disease, those who are receiving or discontinuing medical therapy to restore bone mass, or have additional risk factors.
== END 2022-12-11 08:02 | disposition home or self-care (01) ==
LOC: HO.MAMMO 08:01
PROVIDERS: PCP Internal Medicine; Visit Provider Internal Medicine
DX: Z13.820 Encounter for screening for osteoporosis (principal); Z78.0 Asymptomatic menopausal state
CPT/HCPCS: 77080

== ENCOUNTER 2022-12-15 09:49 | Outpatient (REF) | payer MEDICARE, SELFPAY ==
--- NOTE | ~2022-12-15 | MM_ITS ---
EXAMINATION: XR DEXA VERTEBRAL Your patient completed a vertebral fracture assessment using the [employer] DXA system (software version: 14.10) manufactured by [employer]. The following summarizes the results of our evaluation. LVA MORPHOMETRY RESULTS: Evaluation of the thoracolumbar spine from T4 through L4 was performed. Image quality is good. ASSESSMENT: There is a severe compression deformity of T4 with average height of 1.04 cm corresponding to a Z score of -5.2. The jtryyqyr-zn-uivfbnqtn ratio at this level is 81% corresponding to a Z score of -2.0. The average height Z scores less than 2 standard deviations are also seen at T5, T6, and T8. RECOMMENDATIONS: All patients should ensure an adequate intake of dietary calcium (1200 mg/d) and vitamin D (400-800 IU/d). Effective therapies are now available in the form of bisphosphonates, (alendronate, ibandronate, risedronate, zoledronic acid), antiresorptive agents (calcitonin, estrogen+progesterone and raloxifene) and anabolic agent (teriparatide). These therapies may reduce vertebral, hip and other fractures by up to 50%. FOLLOW-UP: People with diagnosed cases of osteoporosis, high risk for fracture, or current vertebral fractures should have regular bone mineral density tests. The frequency of follow-up vertebral fracture assessment tests should be determined based on clinical circumstances. Often times, testing frequency will be based on rapidly progressing disease, or the addition or elimination of therapy to treat the disease.
== END 2022-12-15 09:50 | disposition home or self-care (01) ==
LOC: HO.MAMMO 09:49
PROVIDERS: PCP Internal Medicine; Visit Provider Internal Medicine
DX: Z13.820 Encounter for screening for osteoporosis (principal); Z78.0 Asymptomatic menopausal state
CPT/HCPCS: 77086

== ENCOUNTER 2023-10-13 13:39 | Outpatient (REF) | payer MEDICARE, SELFPAY ==
--- NOTE | ~2023-10-13 | MM_ITS ---
EXAMINATION: MM SCREENING DIGITAL BREAST TOMOSYNTHESIS, BILATERAL CLINICAL INFORMATION: Screening. Asymptomatic. COMPARISON: Mammography: This study is compared with prior exams dating back to 2015. TECHNIQUE: Digital breast tomosynthesis is performed in both the craniocaudal and mediolateral oblique views along with computer-aided detection (CAD). Synthesized 2D images are generated from the tomosynthesis. FINDINGS: There are scattered areas of fibroglandular density (ACR BI-RADS breast composition Category b). There are no significant masses, abnormal calcifications, or other abnormalities. MM/MM tomosynthesis screening BI IMPRESSION: No mammographic evidence of malignancy. ASSESSMENT: BI-RADS BI-RADS 1 - Negative RECOMMENDATION: Routine annual mammography screening. 1 year F/U This examination should not preclude the clinical evaluation of a suspicious palpable abnormality. This patient's information was entered into a reminder system with a target due date for their next mammogram.
== END 2023-10-13 13:40 | disposition home or self-care (01) ==
LOC: HO.MAMMO 13:39
PROVIDERS: PCP Internal Medicine; Visit Provider Internal Medicine
DX: Z12.31 Encounter for screening mammogram for malignant neoplasm of breast (principal)
CPT/HCPCS: 77063; 77067

== ENCOUNTER → 2023-10-13 14:00 | Outpatient (BNV) | payer MEDICARE, SELFPAY | PROVIDERS: PCP Internal Medicine; Visit Provider Radiology Diagnostic Radiology | DX: Z12.31 Encounter for screening mammogram for malignant neoplasm of breast (principal) | CPT/HCPCS: 77063; 77067 ==

== ENCOUNTER 2024-10-18 13:28 | Outpatient (REF) | payer MEDICARE, SELFPAY ==
--- NOTE | ~2024-10-18 | MM_ITS ---
EXAMINATION: MM SCREENING DIGITAL BREAST TOMOSYNTHESIS, BILATERAL CLINICAL INFORMATION: Screening. Asymptomatic. COMPARISON: Mammography: Comparison is made with available priors TECHNIQUE: Digital breast mammography with tomosynthesis is performed in both the craniocaudal and mediolateral oblique views along with computer-aided detection (CAD). FINDINGS: There are scattered areas of fibroglandular density (ACR BI-RADS breast composition Category b). There are no significant masses, abnormal calcifications, or other abnormalities. MM/MM tomosynthesis screening BI IMPRESSION: No mammographic evidence of malignancy. ASSESSMENT: BI-RADS BI-RADS 1 - Negative RECOMMENDATION: Routine annual mammography screening. 1 year F/U This examination should not preclude the clinical evaluation of a suspicious palpable abnormality. This patient's information was entered into a reminder system with a target due date for their next mammogram. Electronically signed by: Jessica Vasquez DO 10/27/2024 10:12 AM KRISTY
== END 2024-10-18 13:29 | disposition home or self-care (01) ==
LOC: HO.MAMMO 13:28
PROVIDERS: PCP Internal Medicine; Visit Provider Internal Medicine
DX: Z12.31 Encounter for screening mammogram for malignant neoplasm of breast (principal)
CPT/HCPCS: 77063; 77067

== ENCOUNTER → 2024-10-18 14:00 | Outpatient (BNV) | payer MEDICARE, SELFPAY | PROVIDERS: PCP Internal Medicine; Visit Provider Internal Medicine | DX: Z12.31 Encounter for screening mammogram for malignant neoplasm of breast (principal) | CPT/HCPCS: 77063; 77067 ==

== ENCOUNTER 2025-10-24 13:21 | Outpatient (REF) | payer MEDICARE, SELFPAY ==
--- NOTE | ~2025-10-24 | MM_ITS ---
EXAMINATION: MM SCREENING DIGITAL BREAST TOMOSYNTHESIS, BILATERAL CLINICAL INFORMATION: Screening. Asymptomatic. COMPARISON: Comparison made to multiple prior, most recent October 18, 2024, and most remote December 17, 2014. TECHNIQUE: Digital breast tomosynthesis is performed in mediolateral oblique and craniocaudal views along with computer-aided detection (CAD). Synthesized 2D images are generated from the tomosynthesis. FINDINGS: BREAST COMPOSITION: There are scattered areas of fibroglandular density. BILATERAL BREASTS: No significant masses, suspicious calcifications or other abnormalities are seen in either breast. MM/MM tomosynthesis screening BI IMPRESSION: BILATERAL BREASTS: Negative, no mammographic evidence of malignancy. Normal interval follow-up is recommended in 12 months. ASSESSMENT: BI-RADS: Category 1: Negative RECOMMENDATION: Routine annual mammography screening. FOLLOW-UP: 1 year F/U This examination should not preclude the clinical evaluation of a suspicious palpable abnormality. This patient's information was entered into a reminder system with a target due date for their next mammogram. Electronically signed by: Rosanna Koehler MD 10/25/2025 10:08 AM KRISTY
--- OUTSIDE RECORDS SUMMARY | 2025-10-24 15:53 | XMS_ITS | Patient Health Record ---
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 Name Role Phone KUN, MONICA Primary Care Provider Ayaan Rao Jr Unavailable [phone] Allergies Allergen (clinical drug ingredient) Drug/Non Drug Allergy documented on EMR Reaction Allergy Type Onset Date Status atorvastatin Atorvastatin (uncoded) Unknown Allergy Active sulfamethoxazole / trimethoprim Bactrim (uncoded) Unknown Allergy Active penicillin (uncoded) Unknown Allergy Active Shellfish (uncoded) Unknown Allergy Active Substance with sulfonamide structure and antibacterial mechanism of action (substance) Sulfa (uncoded) Unknown Allergy Act renee Reason For Referral No Information Medications Medication SIG (Take, Route, Frequency, Duration) Notes Start Date End Date Status Multivitamin Active Glucosamine Active Lovastatin Active Ocuvite Active Ibuprofen PRN Active MiraLax (colon prep) 8.3 ounce ((238) grams mixed with Gatorade or Crystal Light orally begin at 5:00 p.m. the day before the procedure; Duration: 1 day 09/18/2020 Active Calcium Active Biotin Active Immunizations Vaccine Route Administration Date Status Comme nts Influenza Unknown 09/04/2020 Administered Social History Tobacco Use: Social History Observation Description Date Details (start date - stop date) Never Smoker NA - NA Social History Drugs/Alcohol: Social Info Question Answer Notes Alcohol Screen Did you have a drink containing alcohol in the past year? Yes How often did you have a drink containing alcohol in the past year? Monthly or less (1 point) How often did you have 6 or more drinks on one occasion in the past year? 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 Problems Problem Type SNOMED Code ICD Code Onset Dates Problem Status W/U Status Risk Notes Problem Colon cancer screening (616942433) Colon cancer screening (Z12.11) Active confirmed Problem shelter current use of non-steroidal anti-inflammat ory drug (0539043132205 03) shelter (current) use of non-steroidal anti-inflammatori es (NSAID) (Z79.1) Active confirmed Problem Pre-procedure evaluation check (513596583) Encounter for other preprocedural examination (Z01.818) Active confirmed Plan Of Treatment Future Test Test Name Order Date COLONOSCOPY 09/18/2020 Insurance Providers Payer Name Payer Address Payer Phone Subscriber Number Group Number Insured Name Patient Relationship to Insured Coverage Start Date Coverage End Date [facility] [address] [place], [place] [id number] BRENTON HIGGINS Self - patient is the insured Medical (General) History Medical History History ICD Code hyperlipidemia Arthritis osteopenia Pneumothorax Surgical History Surgery Date(Month/Year) laparoscopy for endometriosis 80s Pneumothorax - chest tube placed 1978
== END 2025-10-24 13:22 | disposition home or self-care (01) ==
LOC: HO.MAMMO 13:21
PROVIDERS: PCP Internal Medicine; Visit Provider Internal Medicine
DX: Z12.31 Encounter for screening mammogram for malignant neoplasm of breast (principal)
CPT/HCPCS: 77063; 77067

== ENCOUNTER → 2025-10-24 13:45 | Outpatient (BNV) | payer MEDICARE, SELFPAY | PROVIDERS: PCP Internal Medicine; Visit Provider Radiology Body Imaging | DX: Z12.31 Encounter for screening mammogram for malignant neoplasm of breast (principal) | CPT/HCPCS: 77063; 77067 ==